=== PATIENT | female | born 1965 | race Caucasian/White ===

== ENCOUNTER → 2021-02-06 | Outpatient (CLI) | payer BC, SELFPAY ==
[2021-02-07 08:15] LABS: HBSAG SCREEN Negative (Negative); HEP B CORE AB, TOT Negative (Negative)
[2021-02-07 09:15] LABS: HCV AB <0.1 (0.0-0.9)
[2021-02-07 13:10] LABS: RHEUMATOID ARTHRITIS FACTOR 10.6 IU/mL (0.0-13.9)
[2021-02-13 09:14] LABS: QUANTIFERON MITOGEN VALUE >10.00 IU/mL (.); QUANTIFERON NIL VALUE 0.75 IU/mL (.); QUANTIFERON TB1 AG VALUE 0.42 IU/mL (.); QUANTIFERON TB2 AG VALUE 0.32 IU/mL (.); QUANTIFERON-TB GOLD PLUS Negative (Negative)
== END ==
LOC: LAB 12:29
PROVIDERS: Internal Medicine
DX: D89.89 Other specified disorders involving the immune mechanism, not elsewhere classified (principal); M25.50 Pain in unspecified joint; R76.8 Other specified abnormal immunological findings in serum; L40.50 Arthropathic psoriasis, unspecified; Z79.899 Other long term (current) drug therapy
CPT/HCPCS: 36415; 85652; 86140; 86431; 86704; 86803; 87340

== ENCOUNTER → 2021-03-14 | Outpatient (CLI) | payer BC, SELFPAY | LOC: EMI 10:45 | DX: R94.02 Abnormal brain scan (principal); G44.89 Other headache syndrome; G43.009 Migraine without aura, not intractable, without status migrainosus; R41.840 Attention and concentration deficit | CPT/HCPCS: 70553; A9577 ==

== ENCOUNTER → 2022-04-17 | Outpatient (CLI) | payer BC | LOC: MRI 13:00 | DX: Z00.00 Encounter for general adult medical examination without abnormal findings (principal); R94.02 Abnormal brain scan | CPT/HCPCS: 36415; 70553; 82565; 84520; A9577 ==